=== PATIENT | female | born 1930 | race Caucasian/White ===

== ENCOUNTER 2018-12-29 08:02 | Inpatient (IN) ==
[2018-12-29] MEDS ORDERED: ONDANSETRON 4 MG/2 ML VIAL IV STA (08:24)
[2018-12-29] MEDS ORDERED: SODIUM CHLORIDE 0.9% 500 ML IV STA (08:44)
[2018-12-29 09:29] LABS: Basophils # 0.1 10*3/uL (0.0-0.2); Basophils % 0.4 % (0.0-0.8); Eosinophils # 0.7 10*3/uL (0.0-0.87); Eosinophils % 5.8 % (0.00-10.9); Hematocrit 33.1 VOL% (35.7-47.0); Hemoglobin 10.3 GM/DL (12.0-16.0); Immature Granulocytes % 0.5 %; Immature Granulocytes Absolute 0.06 #; Lymphocytes % 17.1 % (21.3-54.2); Mean Corpuscular HGB Conc 31.1 GM/DL (32-36); Mean Corpuscular Volume 91.9 FL (87-102); Monocytes % 7.1 % (1.7-12.7); Neutrophils % 69.1 % (38.7-73.9); Platelet Count 245 T/CUMM (130-400); Red Cell Distribution Width 13.3 % (9.3-17.3); White Blood Count 11.8 T/CUMM (4-12)
[2018-12-29 09:35] LABS: Apearance,Urine CLEAR (Clear); Bacteria,Urine Occasional /HPF (Few); Bilirubin,Urine Negative (Negative); Blood, Urine Negative (Negative); Glucose,Urine (UA) Negative (Negative); Hyaline Casts,Urine 1 /LPF (0-3); Ketones,Urine Negative (Negative); Mucus,Urine Occasional /LPF (Occasional); Nitrite,Urine Negative (Negative); Protein,Urine Negative; RBC,Urine 2 /HPF (0-4); Squamous Epithelial Cell,Urine Occasional /HPF (0-10); Urine Color Yellow (Yellow); Urine Specific Gravity 1.018 (1.001-1.035); Urine Urobilinogen < 2.0 EU/DL (0.2-1.0); WBC,Urine 1 /HPF (0-6)
[2018-12-29 09:38] LABS: Alanine Aminotransferase 37 U/L (13-56); Albumin 3.2 G/DL (3.4-5.0); Alkaline Phosphatase 80 U/L (45-117); Aspartate Amino Transferase 32 U/L (0-37); Blood Urea Nitrogen 10 MG/DL (7-18); Calcium 8.5 MG/DL (8.5-10.1); Glucose 149 MG/DL (74-106); Osmolality,Calculated 280.4 MOS/KG (273-304)
[2018-12-29] MEDS ORDERED: GLUCAGON 1 MG VIAL IM PRN (12:20)
[2018-12-29] MEDS ORDERED: MAGNESIUM SULF RIDER 2 GM in PREMIX 1 EACH IV PRN (12:20)
[2018-12-29] MEDS ORDERED: ACETAMINOPHEN 325 MG TABLET PO PRN (12:20)
[2018-12-29] MEDS ORDERED: DEXTROSE 50% 25 GM/50 ML SYRINGE IV PRN (12:20)
[2018-12-29] MEDS ORDERED: MAGNESIUM SULF RIDER 4 GM in PREMIX 1 EACH IV PRN (12:20)
[2018-12-29] MEDS ORDERED: NITROGLYCERIN SL 0.4 MG TABLET SL PRN (12:23)
[2018-12-29] MEDS ORDERED: BUDESONIDE/FORMOTEROL 160-4.5 INHALER 6 GM INH PRN (12:24)
[2018-12-29] MEDS ORDERED: ALBUTEROL/IPRATROPIUM 3 ML NEB RESP TX PRN (12:24)
[2018-12-29] MEDS ORDERED: METOCLOPRAMIDE 10 MG/10 ML UDCUP PO PRN (12:24)
[2018-12-29] MEDS ORDERED: LORATADINE 10 MG PO PRN (12:24)
[2018-12-29] MEDS: FUROSEMIDE 40 MG/4 ML VIAL IV SCH (15:30)
[2018-12-29] MEDS: PANTOPRAZOLE 40 MG TABLET PO SCH (20:16)
[2018-12-29] MEDS: MAGNESIUM OXIDE 400 MG TABLET PO SCH (20:16)
[2018-12-29] MEDS ORDERED: APIXABAN 2.5 MG TABLET PO SCH (21:00)
[2018-12-30 05:18] LABS: Calcium 8.5 MG/DL (8.5-10.1); Osmolality,Calculated 276.5 MOS/KG (273-304)
[2018-12-30] MEDS ORDERED: LISINOPRIL 10 MG TABLET PO SCH (09:00)
[2018-12-30] MEDS: PARoxetine 10 MG TABLET PO SCH (09:34)
[2018-12-30] MEDS: MULTIVITAMIN (CENTRUM) TABLET PO SCH (09:34)
[2018-12-30] MEDS: POTASSIUM CHLORIDE 20 MEQ TABLET PO PRN ×3 (09:35→14:37)
[2018-12-30] MEDS: FUROSEMIDE 40 MG/4 ML VIAL IV SCH ×2 (09:35→16:14)
[2018-12-30] MEDS: MULTIVITAMIN (OCUVITE) TABLET PO SCH (09:35)
[2018-12-30] MEDS: MONTELUKAST 10 MG TABLET PO SCH (09:35)
[2018-12-30] MEDS: PANTOPRAZOLE 40 MG TABLET PO SCH ×2 (09:35→21:08)
[2018-12-30] MEDS: amLODIPine 5 MG TABLET PO SCH (09:35)
[2018-12-30] MEDS: MAGNESIUM OXIDE 400 MG TABLET PO SCH (21:08)
[2018-12-31 08:02] VITALS: BP 127/67
[2018-12-31] MEDS: PARoxetine 10 MG TABLET PO SCH (08:37)
[2018-12-31] MEDS: FUROSEMIDE 40 MG/4 ML VIAL IV SCH (08:38)
[2018-12-31] MEDS: amLODIPine 5 MG TABLET PO SCH (08:38)
[2018-12-31] MEDS: PANTOPRAZOLE 40 MG TABLET PO SCH (08:38)
[2018-12-31] MEDS: MULTIVITAMIN (CENTRUM) TABLET PO SCH (08:38)
[2018-12-31] MEDS: MONTELUKAST 10 MG TABLET PO SCH (08:38)
[2018-12-31] MEDS: MULTIVITAMIN (OCUVITE) TABLET PO SCH (08:38)
[2018-12-31] MEDS ORDERED: BISACODYL 5 MG TABLET PO SCH (09:00)
[2018-12-31] MEDS ORDERED: COLCHICINE 0.6 MG CAPSULE PO SCH (09:00)
== END 2018-12-31 11:30 | disposition home or self-care (01) | DRG 314 ==
LOC: N.ED 08:02 → N.EDINP 12:20 → N.TELES 13:33
PROVIDERS: ADMIT Family Medicine; ATTEND Family Medicine

== ENCOUNTER 2019-03-17 07:16 | Inpatient (IN) ==
[2019-03-17] MEDS ORDERED: SODIUM CHLORIDE 0.9% 1,000 ML IV STA (07:23)
[2019-03-17] MEDS ORDERED: fentaNYL 100 MCG/2 ML VIAL IV STA (07:28)
[2019-03-17] MEDS ORDERED: PROPOFOL 200 MG/20 ML VIAL IV ONE ×2 (08:19→13:55)
[2019-03-17 08:31] LABS: Basophils # 0.1 10*3/uL (0.0-0.2); Basophils % 0.6 % (0.0-0.8); Eosinophils # 0.3 10*3/uL (0.0-0.87); Hemoglobin 12.5 GM/DL (12.0-16.0); Immature Granulocytes % 0.2 %; Immature Granulocytes Absolute 0.02 #; Lymphocytes # 2.2 10*3/uL (1.4-4.0); Lymphocytes % 24.5 % (21.3-54.2); Mean Corpuscular HGB Conc 31.3 GM/DL (32-36); Mean Corpuscular Volume 90.5 FL (87-102); Mean Platelet Volume 9.7 FL (9.6-12.0); Neutrophils % 64.7 % (38.7-73.9); Platelet Count 234 T/CUMM (130-400); Red Blood Count 4.42 MC/CUMM (3.8-5.5); Red Cell Distribution Width 15.9 % (9.3-17.3); White Blood Count 8.9 T/CUMM (4-12)
[2019-03-17] MEDS ORDERED: ONDANSETRON 4 MG/2 ML VIAL IV PRN ×2 (08:33→14:05)
[2019-03-17] MEDS ORDERED: ACETAMINOPHEN 325 MG TABLET PO PRN ×2 (08:33→08:38)
[2019-03-17 08:37] LABS: PT Patient Result 11.1 SECS
[2019-03-17] MEDS ORDERED: ALBUTEROL 2.5 MG/3 ML NEB RESP TX PRN (08:37)
[2019-03-17] MEDS ORDERED: ALBUTEROL/IPRATROPIUM 3 ML NEB RESP TX PRN (08:38)
[2019-03-17] MEDS ORDERED: BUDESONIDE/FORMOTEROL 160-4.5 INHALER 6 GM INH PRN (08:38)
[2019-03-17] MEDS ORDERED: NITROGLYCERIN SL 0.4 MG TABLET SL PRN (08:38)
[2019-03-17] MEDS ORDERED: BISACODYL 5 MG TABLET PO PRN (08:38)
[2019-03-17] MEDS ORDERED: LORATADINE 10 MG TABLET PO PRN (08:38)
[2019-03-17 08:50] LABS: Apearance,Urine CLEAR (Clear); Bilirubin,Urine Negative (Negative); Blood, Urine Negative (Negative); Glucose,Urine (UA) Negative (Negative); Hyaline Casts,Urine 5 /LPF (0-3); Ketones,Urine Negative (Negative); Mucus,Urine Many /LPF (Occasional); Nitrite,Urine Negative (Negative); Protein,Urine 30 MG/DL; RBC,Urine <1 /HPF (0-4); Squamous Epithelial Cell,Urine Occasional /HPF (0-10); Urine Color Amber (Yellow); Urine Specific Gravity 1.028 (1.001-1.035); Urine Urobilinogen < 2.0 EU/DL (0.2-1.0); WBC,Urine 1 /HPF (0-6)
[2019-03-17 08:54] LABS: Barbiturates Screen,Urine Negative (Negative); Benzodiazepines Screen,Urine Positive (Negative); Cannabinoid Screen,Urine Negative (Negative); Opiate Screen,Urine Negative (Negative); Phencyclidine Screen,Urine Negative (Negative)
[2019-03-17 08:58] LABS: Albumin 3.4 G/DL (3.4-5.0); Bilirubin,Total 0.8 MG/DL (0.2-1.0); Calcium 8.7 MG/DL (8.5-10.1); Osmolality,Calculated 289.7 MOS/KG (273-304); Total Protein 6.5 G/DL (6.4-8.3)
[2019-03-17] MEDS ORDERED: FUROSEMIDE 20 MG TABLET PO SCH (09:00)
[2019-03-17] MEDS: SODIUM CHLORIDE 0.45% 1,000 ML IV SCH ×2 (11:07→18:02)
[2019-03-17] MEDS: FAMOTIDINE 20 MG/2 ML VIAL IV SCH ×2 (11:08→20:54)
[2019-03-17] MEDS ORDERED: ceFAZolin 1,000 MG in SYRINGE 1 EACH IV ONE (12:00)
[2019-03-17] MEDS ORDERED: ceFAZolin 1,000 MG VIAL ONE (12:35)
[2019-03-17] MEDS ORDERED: BISACODYL 10 MG SUPP RECTAL PRN (13:38)
[2019-03-17] MEDS ORDERED: diphenhydrAMINE CAP 25 MG CAPSULE PO PRN (13:38)
[2019-03-17] MEDS ORDERED: MAGNESIUM HYDROXIDE SUSP 30 ML UDCUP PO PRN (13:38)
[2019-03-17] MEDS ORDERED: LACTULOSE 20 GM/30 ML UDCUP PO PRN (13:38)
[2019-03-17] MEDS ORDERED: MORPHINE 4 MG/1 ML VIAL IV PRN ×2 (13:38→13:50)
[2019-03-17] MEDS ORDERED: HYDROCORTISONE 100 MG VIAL ONE (13:55)
[2019-03-17] MEDS ORDERED: fentaNYL 100 MCG/2 ML VIAL ONE (13:55)
[2019-03-17] MEDS ORDERED: ACETAMINOPHEN 1,000 MG/100 ML VIAL IV ONE (13:55)
[2019-03-17] MEDS ORDERED: SEVOFLURANE 1 UNIT/15 MINUTE INH ONE (13:55)
[2019-03-17] MEDS ORDERED: ONDANSETRON 4 MG/2 ML VIAL ONE ×2 (13:55→14:01)
[2019-03-17] MEDS ORDERED: PHENYLEPHRINE 1 MG/10 ML SYRINGE IV ONE (13:56)
[2019-03-17] MEDS: MORPHINE 10 MG/1 ML VIAL IV PRN ×4 (13:58→14:13)
[2019-03-17] MEDS ORDERED: MORPHINE 10 MG/1 ML VIAL ONE (14:01)
[2019-03-17] MEDS: LACTATED RINGERS 1,000 ML IV SCH (14:10)
[2019-03-17] MEDS: PARoxetine 10 MG TABLET PO SCH (15:10)
[2019-03-17] MEDS: predniSONE 5 MG TABLET PO SCH ×2 (15:10→20:53)
[2019-03-17] MEDS: ENOXAPARIN 30 MG/0.3 ML SYRINGE SUBCUT SCH (15:11)
[2019-03-17] MEDS: FOLIC ACID 1 MG TABLET PO SCH (15:11)
[2019-03-17] MEDS: MONTELUKAST 10 MG TABLET PO SCH (15:11)
[2019-03-17] MEDS: MULTIVITAMIN (CENTRUM) TABLET PO SCH (15:11)
[2019-03-17] MEDS: MULTIVITAMIN (OCUVITE) TABLET PO SCH (15:11)
[2019-03-17] MEDS: MAGNESIUM OXIDE 400 MG TABLET PO SCH (20:53)
[2019-03-17] MEDS: ceFAZolin 1,000 MG in SYRINGE 1 EACH IV SCH (20:56)
[2019-03-18] MEDS: SODIUM CHLORIDE 0.45% 1,000 ML IV SCH ×2 (02:02→10:32)
[2019-03-18] MEDS: ceFAZolin 1,000 MG in SYRINGE 1 EACH IV SCH ×2 (04:56→12:58)
[2019-03-18] MEDS: MONTELUKAST 10 MG TABLET PO SCH (08:18)
[2019-03-18] MEDS: MULTIVITAMIN (CENTRUM) TABLET PO SCH (08:18)
[2019-03-18] MEDS: ENOXAPARIN 30 MG/0.3 ML SYRINGE SUBCUT SCH (08:18)
[2019-03-18] MEDS: predniSONE 5 MG TABLET PO SCH ×2 (08:18→21:02)
[2019-03-18] MEDS: FOLIC ACID 1 MG TABLET PO SCH (08:18)
[2019-03-18] MEDS: MULTIVITAMIN (OCUVITE) TABLET PO SCH (08:19)
[2019-03-18] MEDS: PARoxetine 10 MG TABLET PO SCH (08:19)
[2019-03-18] MEDS: FAMOTIDINE 20 MG/2 ML VIAL IV SCH (08:22)
[2019-03-18] MEDS: APIXABAN 2.5 MG TABLET PO SCH (21:02)
[2019-03-18] MEDS: MAGNESIUM OXIDE 400 MG TABLET PO SCH (21:02)
[2019-03-18] MEDS: PANTOPRAZOLE 40 MG TABLET PO SCH (21:02)
[2019-03-19] MEDS: LACTATED RINGERS 1,000 ML IV SCH (01:15)
[2019-03-19] MEDS: MONTELUKAST 10 MG TABLET PO SCH (09:58)
[2019-03-19] MEDS: PARoxetine 10 MG TABLET PO SCH (09:58)
[2019-03-19] MEDS: predniSONE 5 MG TABLET PO SCH ×2 (09:59→20:35)
[2019-03-19] MEDS: MULTIVITAMIN (CENTRUM) TABLET PO SCH (09:59)
[2019-03-19] MEDS: FOLIC ACID 1 MG TABLET PO SCH (09:59)
[2019-03-19] MEDS: APIXABAN 2.5 MG TABLET PO SCH ×2 (09:59→20:35)
[2019-03-19] MEDS: PANTOPRAZOLE 40 MG TABLET PO SCH ×2 (09:59→20:35)
[2019-03-19] MEDS: MULTIVITAMIN (OCUVITE) TABLET PO SCH (09:59)
[2019-03-19] MEDS: MAGNESIUM OXIDE 400 MG TABLET PO SCH (20:35)
[2019-03-20] MEDS: APIXABAN 2.5 MG TABLET PO SCH (09:47)
[2019-03-20] MEDS: FOLIC ACID 1 MG TABLET PO SCH (09:47)
[2019-03-20] MEDS: predniSONE 5 MG TABLET PO SCH (09:47)
[2019-03-20] MEDS: PANTOPRAZOLE 40 MG TABLET PO SCH (09:47)
[2019-03-20] MEDS: PARoxetine 10 MG TABLET PO SCH (09:47)
[2019-03-20] MEDS: MULTIVITAMIN (CENTRUM) TABLET PO SCH (09:47)
[2019-03-20] MEDS: MONTELUKAST 10 MG TABLET PO SCH (09:47)
[2019-03-20] MEDS: MULTIVITAMIN (OCUVITE) TABLET PO SCH (09:47)
[2019-03-20 12:01] VITALS: BP 156/73
== END 2019-03-20 12:42 | disposition swing bed (61) | DRG 493 ==
LOC: EDUNIT# → EDBD → N.ED 07:16 → N.EDINP 08:33 → N.3E 10:28
PROVIDERS: ADMIT Family Medicine; ATTEND Family Medicine

== ENCOUNTER 2021-11-11 06:48 | Inpatient (IN) ==
[2021-11-11] MEDS ORDERED: ALBUTEROL NEB SOLN 5 MG/ML 20 ML/BOTTLE CONT NEB SCH (08:00)
[2021-11-11 08:01] LABS: Basophils % 0.1 % (0.0-0.8); Hematocrit 38.5 VOL% (35.7-47.0); Immature Granulocytes % 0.5 %; Immature Granulocytes Absolute 0.08 #; Lymphocytes # 2.2 10*3/uL (1.4-4.0); Lymphocytes % 14.9 % (21.3-54.2); Mean Corpuscular HGB Conc 31.2 GM/DL (32-36); Mean Corpuscular Volume 86.9 FL (87-102); Mean Platelet Volume 10.6 FL (9.6-12.0); Monocytes % 4.6 % (1.7-12.7); Neutrophils % 79.9 % (38.7-73.9); Platelet Count 259 T/CUMM (130-400); Red Blood Count 4.43 MC/CUMM (3.8-5.5); Red Cell Distribution Width 15.1 % (9.3-17.3); White Blood Count 14.7 T/CUMM (4-12)
[2021-11-11 08:21] LABS: Albumin 3.5 G/DL (3.4-5.0); Bilirubin,Total 1.1 MG/DL (0.20-1.00); Calcium 8.6 MG/DL (8.5-10.1); Osmolality,Calculated 262.1 MOS/KG (273-304); Potassium 4.6 MMOL/L (3.5-5.1); Total Protein 6.6 G/DL (6.4-8.2)
[2021-11-11] MEDS ORDERED: FUROSEMIDE 40 MG/4 ML VIAL IV STA (09:41)
[2021-11-11] MEDS ORDERED: hydrALAZINE 20 MG/1 ML VIAL IV PRN (11:52)
[2021-11-11] MEDS ORDERED: ACETAMINOPHEN 325 MG TABLET PO PRN (11:52)
[2021-11-11] MEDS ORDERED: ONDANSETRON 4 MG/2 ML VIAL IV PRN (11:52)
[2021-11-11] MEDS ORDERED: GLUCAGON 1 MG VIAL IM PRN (11:52)
[2021-11-11] MEDS ORDERED: DEXTROSE 10% 250 ML BAG IV PRN (12:02)
[2021-11-11] MEDS ORDERED: FLUTICASONE 50 MCG NASAL SPRAY 16 GM BOTTLE BOTH NARES PRN (12:05)
[2021-11-11] MEDS ORDERED: LEVOFLOXACIN INJ 750 MG/150 ML PREMIX IV SCH (12:30)
[2021-11-11] MEDS: methylPREDNISolone SOD SUC 40 MG/1 ML VIAL IV SCH ×2 (12:49→21:59)
[2021-11-11] MEDS: carvediloL 3.125 MG TABLET PO SCH ×2 (12:49→21:57)
[2021-11-11] MEDS: lisinopriL 2.5 MG TABLET PO SCH (12:49)
[2021-11-11] MEDS ORDERED: traZODone 50 MG TABLET PO PRN (13:23)
[2021-11-11] MEDS: ALBUTEROL/IPRATROPIUM 3 ML NEB RESP TX SCH ×2 (13:45→19:30)
[2021-11-11] MEDS: FUROSEMIDE 40 MG/4 ML VIAL IV SCH (16:22)
[2021-11-11] MEDS: INSULIN LISPRO 100 UNIT/ML SUBCUT SCH ×2 (17:06→22:00)
[2021-11-11] MEDS ORDERED: ATORVASTATIN 40 MG TABLET PO SCH (21:00)
[2021-11-11] MEDS: MELATONIN 3 MG TABLET PO PRN (21:58)
[2021-11-11] MEDS: PANTOPRAZOLE 40 MG TABLET PO SCH (21:58)
[2021-11-11] MEDS: APIXABAN 2.5 MG TABLET PO SCH (21:58)
[2021-11-11] MEDS: MONTELUKAST 10 MG TABLET PO SCH (21:58)
[2021-11-12] MEDS: ALBUTEROL/IPRATROPIUM 3 ML NEB RESP TX SCH ×4 (04:53→19:09)
[2021-11-12] MEDS: methylPREDNISolone SOD SUC 40 MG/1 ML VIAL IV SCH ×3 (05:30→22:32)
[2021-11-12 06:21] LABS: Basophils % 0.1 % (0.0-0.8); Hematocrit 37.9 VOL% (35.7-47.0); Hemoglobin 12.2 GM/DL (12.0-16.0); Immature Granulocytes % 0.5 %; Immature Granulocytes Absolute 0.06 #; Lymphocytes # 1.6 10*3/uL (1.4-4.0); Lymphocytes % 14.1 % (21.3-54.2); Mean Corpuscular HGB Conc 32.2 GM/DL (32-36); Mean Corpuscular Volume 84.2 FL (87-102); Mean Platelet Volume 10.1 FL (9.6-12.0); Monocytes % 4.9 % (1.7-12.7); Neutrophils % 80.4 % (38.7-73.9); Platelet Count 265 T/CUMM (130-400); White Blood Count 11.5 T/CUMM (4-12)
[2021-11-12 06:44] LABS: Albumin 3.6 G/DL (3.4-5.0); Bilirubin,Total 1.2 MG/DL (0.20-1.00); Calcium 8.8 MG/DL (8.5-10.1); Osmolality,Calculated 268.8 MOS/KG (273-304); Potassium 4.3 MMOL/L (3.5-5.1)
[2021-11-12] MEDS ORDERED: FUROSEMIDE 40 MG/4 ML VIAL IV SCH (09:00)
[2021-11-12] MEDS: lisinopriL 2.5 MG TABLET PO SCH (10:29)
[2021-11-12] MEDS: APIXABAN 2.5 MG TABLET PO SCH ×2 (10:30→20:31)
[2021-11-12] MEDS: carvediloL 3.125 MG TABLET PO SCH ×2 (10:30→20:30)
[2021-11-12] MEDS: PARoxetine 10 MG TABLET PO SCH (10:30)
[2021-11-12] MEDS: PANTOPRAZOLE 40 MG TABLET PO SCH ×2 (10:30→20:31)
[2021-11-12] MEDS: INSULIN LISPRO 100 UNIT/ML SUBCUT SCH ×4 (12:54→20:31)
[2021-11-12] MEDS: FUROSEMIDE 40 MG/4 ML VIAL IV SCH (12:58)
[2021-11-12] MEDS: MONTELUKAST 10 MG TABLET PO SCH (20:31)
[2021-11-12] MEDS: ROSUVASTATIN 10 MG TABLET PO SCH (20:31)
[2021-11-13] MEDS: ALBUTEROL/IPRATROPIUM 3 ML NEB RESP TX SCH ×4 (00:02→19:20)
[2021-11-13 04:48] LABS: Basophils % 0.1 % (0.0-0.8); Eosinophils % 0.1 % (0.00-10.9); Hematocrit 37.6 VOL% (35.7-47.0); Hemoglobin 11.7 GM/DL (12.0-16.0); Immature Granulocytes % 0.5 %; Immature Granulocytes Absolute 0.06 #; Lymphocytes # 1.5 10*3/uL (1.4-4.0); Lymphocytes % 11.9 % (21.3-54.2); Mean Corpuscular HGB Conc 31.1 GM/DL (32-36); Mean Corpuscular Volume 85.6 FL (87-102); Mean Platelet Volume 10.5 FL (9.6-12.0); Monocytes % 3.3 % (1.7-12.7); Neutrophils % 84.1 % (38.7-73.9); Platelet Count 247 T/CUMM (130-400); Red Blood Count 4.39 MC/CUMM (3.8-5.5); Red Cell Distribution Width 14.8 % (9.3-17.3); White Blood Count 12.2 T/CUMM (4-12)
[2021-11-13 05:07] LABS: Bilirubin,Total 1.6 MG/DL (0.20-1.00); Calcium 8.7 MG/DL (8.5-10.1); Osmolality,Calculated 271.7 MOS/KG (273-304); Potassium 4.3 MMOL/L (3.5-5.1); Total Protein 6.1 G/DL (6.4-8.2)
[2021-11-13] MEDS: methylPREDNISolone SOD SUC 40 MG/1 ML VIAL IV SCH ×3 (05:34→21:51)
[2021-11-13] MEDS: LEVOTHYROXINE 50 MCG TABLET PO SCH (06:00)
[2021-11-13] MEDS: APIXABAN 2.5 MG TABLET PO SCH ×2 (10:02→21:50)
[2021-11-13] MEDS: PANTOPRAZOLE 40 MG TABLET PO SCH ×2 (10:03→21:50)
[2021-11-13] MEDS: carvediloL 3.125 MG TABLET PO SCH ×2 (10:03→21:50)
[2021-11-13] MEDS: PARoxetine 10 MG TABLET PO SCH (10:03)
[2021-11-13] MEDS: lisinopriL 2.5 MG TABLET PO SCH (10:12)
[2021-11-13] MEDS: INSULIN LISPRO 100 UNIT/ML SUBCUT SCH ×4 (12:44→21:52)
[2021-11-13] MEDS ORDERED: LEVOFLOXACIN INJ 750 MG/150 ML PREMIX IV SCH (13:00)
[2021-11-13] MEDS: FUROSEMIDE 20 MG/2 ML VIAL IV SCH (16:31)
[2021-11-13] MEDS: ROSUVASTATIN 10 MG TABLET PO SCH (21:50)
[2021-11-13] MEDS: MONTELUKAST 10 MG TABLET PO SCH (21:50)
[2021-11-13] MEDS: MELATONIN 3 MG TABLET PO PRN (21:53)
[2021-11-14] MEDS: ALBUTEROL/IPRATROPIUM 3 ML NEB RESP TX SCH ×2 (00:03→07:24)
[2021-11-14] MEDS: methylPREDNISolone SOD SUC 40 MG/1 ML VIAL IV SCH (03:49)
[2021-11-14 05:06] LABS: Basophils % 0.1 % (0.0-0.8); Hematocrit 36.6 VOL% (35.7-47.0); Hemoglobin 11.8 GM/DL (12.0-16.0); Immature Granulocytes % 0.5 %; Immature Granulocytes Absolute 0.08 #; Lymphocytes % 6.4 % (21.3-54.2); Mean Corpuscular HGB Conc 32.2 GM/DL (32-36); Mean Corpuscular Volume 83.8 FL (87-102); Mean Platelet Volume 10.2 FL (9.6-12.0); Monocytes % 2.7 % (1.7-12.7); Neutrophils % 90.3 % (38.7-73.9); Platelet Count 276 T/CUMM (130-400); Red Blood Count 4.37 MC/CUMM (3.8-5.5); Red Cell Distribution Width 15.2 % (9.3-17.3); White Blood Count 15.4 T/CUMM (4-12)
[2021-11-14 05:26] LABS: Bilirubin,Total 0.8 MG/DL (0.20-1.00); Calcium 8.2 MG/DL (8.5-10.1); Osmolality,Calculated 274.4 MOS/KG (273-304); Potassium 3.5 MMOL/L (3.5-5.1)
[2021-11-14] MEDS: LEVOTHYROXINE 50 MCG TABLET PO SCH (05:47)
[2021-11-14] MEDS: INSULIN LISPRO 100 UNIT/ML SUBCUT SCH (07:46)
[2021-11-14 08:27] VITALS: BP 113/91
[2021-11-14] MEDS: lisinopriL 2.5 MG TABLET PO SCH (08:44)
[2021-11-14] MEDS: PANTOPRAZOLE 40 MG TABLET PO SCH (08:44)
[2021-11-14] MEDS: APIXABAN 2.5 MG TABLET PO SCH (08:44)
[2021-11-14] MEDS: carvediloL 3.125 MG TABLET PO SCH (08:44)
[2021-11-14] MEDS: FUROSEMIDE 20 MG/2 ML VIAL IV SCH (08:44)
[2021-11-14] MEDS: PARoxetine 10 MG TABLET PO SCH (08:44)
[2021-11-15] MEDS ORDERED: LEVOFLOXACIN 750 MG TABLET PO SCH (09:00)
== END 2021-11-14 11:21 | disposition home or self-care (01) | DRG 291 ==
LOC: SUATTDRO → N.ED 06:48 → SUATTDRO 11:52 → N.EDINP 11:52 → N.5E 18:13
PROVIDERS: ADMIT Internal Medicine; ATTEND Internal Medicine